=== PATIENT | female | born 1990 | race African-American/Black ===

== ENCOUNTER 2022-12-02 16:28 | Emergency (ER) | payer BC, MEDICAID ==
[~2022-12-02] VITALS: Ht 167.6 cm; Wt 91.0 kg
[2022-12-02 16:34] VITALS: BP 99/68
[2022-12-02] MEDS ORDERED: IBUPROFEN 600MG TABLET PO ONE (17:15)
[2022-12-02] MEDS ORDERED: IBUP-2029 MT (19:14)
[2022-12-02] MEDS ORDERED: CYCL10TA21 MT (19:14)
== END 2022-12-02 19:30 | disposition home or self-care (01) ==
LOC: ER 16:28
DX: S30.0XXA Contusion of lower back and pelvis, initial encounter (principal); Z91.010 Allergy to peanuts; V43.52XA Car driver injured in collision with other type car in traffic accident, initial encounter; Y93.89 Activity, other specified; Y92.488 Other paved roadways as the place of occurrence of the external cause
CPT/HCPCS: 72100; 81025; 99283

== ENCOUNTER 2023-04-06 13:05 | Emergency (ER) | payer MEDICAID ==
[~2023-04-06] VITALS: Ht 167.6 cm; Wt 96.0 kg
[~2023-04-06 13:05] MED LIST: CYCL10TA21 MT; IBUP-2029 MT
[2023-04-06 13:08] VITALS: BP 118/68
[2023-04-06] MEDS ORDERED: ONDANSETRON 4MG ODT PO ONE (13:30)
[2023-04-06] MEDS ORDERED: ACETAMINOPHEN 325MG TABLET PO ONE (13:30)
[2023-04-06 14:27] LABS: CLARITY URINE CLOUDY (CLEAR); COLOR URINE YELLOW (YELLOW); KETONES URINE NEGATIVE (NEGATIVE); LEUKOCYTE ESTERASE URINE TRACE (NEGATIVE); NITRITE URINE POSITIVE (NEGATIVE); OCCULT BLOOD URINE TRACE (NEGATIVE); PH URINE 6.5 (4.5-8.0); PROTEIN URINE NEGATIVE (NEGATIVE); SPECIFIC GRAVITY URINE 1.021 (1.005-1.030)
[2023-04-06] MEDS ORDERED: TOPUD MT (15:24)
[2023-04-06] MEDS ORDERED: NITR-87 MT (15:24)
[2023-04-06] MEDS ORDERED: IBUP-1525 MT (15:24)
== END 2023-04-06 16:18 | disposition home or self-care (01) ==
LOC: ER 15:09
DX: R11.2 Nausea with vomiting, unspecified (principal); Z91.010 Allergy to peanuts
CPT/HCPCS: 81003; 81025; 99283; Q0162